=== PATIENT | female | born 1990 | race Caucasian/White ===

== ENCOUNTER 2019-04-01 12:54 | Emergency (ER) | payer OTHER ==
[~2019-04-01] VITALS: Ht 162.6 cm; Wt 88.5 kg
[2019-04-01] MEDS ORDERED: BIRTH CONTROL PO (13:08)
[2019-04-01 13:32] LABS: ABSOLUTE EOSINOPHILS 0.1 thou/uL (0.0-0.7); ABSOLUTE LYMPHOCYTES 2.1 thou/uL (0.8-5.3); ABSOLUTE MONOCYTES 0.5 thou/uL (0.0-1.2); ABSOLUTE NEUTROPHILS 2.9 thou/uL (1.6-8.1); BASOPHILS 0.4 %; EOSINOPHILS 1.5 %; HEMATOCRIT 37.2 % (37.0-47.0); HEMOGLOBIN 12.4 gm/dL (12.0-15.0); MCH 30.2 pg (26.0-34.0); MCHC 33.3 g/dL (28.0-37.0); MCV 90.7 fL (80.0-100.0); MONOCYTES 8.5 %; MPV 9.7 fl. (7.2-11.1); NUCLEATED RBCS 0 /100WBC; PLATELET COUNT* 168 thou/uL (150-400); POLYS 51.6 %; RDW-CV 13.4 % (10.5-14.5); WBC 5.6 thou/uL (4.0-11.0)
[2019-04-01 13:41] LABS: ANION GAP 8 mmol/L (7-16); BUN 15 mg/dL (7-18); CALCIUM 9.1 mg/dL (8.5-10.1); CHLORIDE 105 mmol/L (98-107); CO2 29 mmol/L (21-32); CREATININE 0.8 mg/dL (0.6-1.3); GLUCOSE 93 mg/dL (70-99); POTASSIUM 4.2 mmol/L (3.5-5.1); SODIUM 142 mmol/L (136-145)
[2019-04-01 13:51] LABS: ALBUMIN 3.6 g/dL (3.4-5.0); ALKALINE PHOSPHATASE 37 U/L (46-116); SGOT 20 U/L (15-37); SGPT 29 U/L (30-65); TOTAL BILIRUBIN 0.5 mg/dL (<0.1-1.0); TOTAL PROTEIN 6.9 g/dL (6.4-8.2); TROPONIN-I LEVEL <0.06 ng/mL (<0.06)
--- NOTE | 2019-04-01 15:10 | EKG ---
[place] [address] ELECTROCARDIOGRAM REPORT Name: JEFF JOSEPH Room: [facility]#: [id number] Admission: 04/01/19 Attend Phys: Discharge: Date of : 86 Report #: [id number] THIS REPORT FOR: //name// [facility] ED Test Date: 2019-04-01 Test Time: 13:01:42 Pat Name: JEFF JOSEPH Department: Room: Gender: F Quality Systems Manager: ELVIN : 1990 Requested By: John Stiles Order Number: [id number] MD: Tim Roberts Measurements Intervals [place] Rate: 70 P: 41 FL: 177 QRS: 60 QRSD: 88 T: 38 QT: 401 QTc: 433 Interpretive Statements Sinus rhythm Borderline T wave abnormalities No previous ECG available for comparison Electronically Signed On 04-01-2019 15:10:04 CDT by Tim Roberts [email or web address] <ELECTRONICALLY SIGNED> By: Tim Roberts MD, [facility] 04/01/19 1510 1301 1301 Tim Roberts MD, FACC /EPI
[2019-04-01 15:38] VITALS: BP 118/65
== END 2019-04-01 15:39 | disposition home or self-care (01) ==
LOC: M.ERS 12:54
PROVIDERS: Emergency Medicine Emergency Medical Services
DX: R00.2 Palpitations (principal); Z86.718 Personal history of other venous thrombosis and embolism